=== PATIENT | male | born 1970 | race Caucasian/White ===

== ENCOUNTER → 2017-01-31 | Outpatient (CLI) | payer MEDICAID ==
[~2017-01-31] MED LIST: NONE PER PT
== END ==
LOC: STAR 12:00 → EDSTATUS 13:30
PROVIDERS: ATTEND Orthopaedic Surgery Orthopaedic Surgery of the Spine
DX: Z02.9 Encounter for administrative examinations, unspecified (principal)
CPT/HCPCS: 36415; 71020; 80053; 81003; 85025; 93005

== ENCOUNTER 2017-02-02 11:30 | Inpatient (IN) | payer MEDICAID ==
[2017-01-31 14:40] LABS: ASPARTATE AMINO TRANSFERASE 26 U/L (15-37); BLOOD UREA NITROGEN 10 mg/dL (7-18)
[~2017-02-02] VITALS: Ht 172.7 cm; Wt 98.9 kg
[2017-02-16] MEDS ORDERED: BUPIVACAINE/PF-EPI 0.25% 1:200K ONE (06:25)
[2017-02-16] MEDS ORDERED: THROMBIN 5,000 UNIT VIAL TP ONE ×2 (06:25→08:40)
[2017-02-16] MEDS ORDERED: BACITRACIN OINT 500U/GM, 15 GM ONE ×2 (06:25→08:40)
[2017-02-16] MEDS ORDERED: BUPIVACAINE/PF-EPI 0.5% 1:200K ONE (08:40)
[2017-02-16 08:54] LABS: DAU SCREEN DISCLAIMER
[2017-02-16] MEDS ORDERED: LACTATED RINGERS 1,000 ML IV SCH (10:23)
[2017-02-16 10:24] VITALS: BP 147/81
[2017-02-16] MEDS ORDERED: ASPI-496 PO (10:31)
[2017-02-16] MEDS ORDERED: ONDANSETRON 2MG/ML, 2ML ONE (12:16)
[2017-02-16] MEDS ORDERED: CEFAZOLIN 1,000 MG ONE (12:16)
[2017-02-16] MEDS ORDERED: DEXAMETHASONE 4 MG/ML, 5ML ONE (12:16)
[2017-02-16] MEDS ORDERED: ROCURONIUM 10 MG/ML ONE (12:16)
[2017-02-16] MEDS ORDERED: PROPOFOL 10 MG/ML, 50ML ONE (12:16)
[2017-02-16] MEDS ORDERED: PROPOFOL 10 MG/ML, 20ML ONE (12:16)
[2017-02-16] MEDS ORDERED: SUCCINYLCHOLINE 20 MG/ML, 10ML ONE (12:16)
[2017-02-16] MEDS ORDERED: FENTANYL PF 250 MCG/5ML ONE (12:23)
[2017-02-16] MEDS ORDERED: KETAMINE 10 MG/ML, 20ML ONE (12:37)
[2017-02-16] MEDS ORDERED: PHARMACY MAY ADJ FOR RENAL FX MC PRN (13:00)
[2017-02-16] MEDS ORDERED: MAGNESIUM HYDROXIDE 8%, 30ML UDC PO PRN (13:00)
[2017-02-16] MEDS ORDERED: BISACODYL 10 MG SUPP PR PRN (13:00)
[2017-02-16] MEDS ORDERED: SENNA/DOCUSATE TABLET PO PRN (13:00)
[2017-02-16] MEDS ORDERED: ONDANSETRON 2MG/ML, 2ML IVPush PRN ×2 (13:00→14:00)
[2017-02-16] MEDS ORDERED: DIPHENHYDRAMINE 50 MG/ML, 1ML IVPush PRN (13:00)
[2017-02-16] MEDS ORDERED: METHOCARBAMOL 750 MG TABLET PO PRN (13:00)
[2017-02-16] MEDS ORDERED: morphine SULFATE 10 MG/ML, 1ML IVPush PRN (13:00)
[2017-02-16] MEDS ORDERED: FENTANYL PF 100 MCG/2ML ONE ×2 (13:16→14:41)
[2017-02-16] MEDS ORDERED: hydrALAzine 20 MG/ML, 1ML IV PRN (14:00)
[2017-02-16] MEDS ORDERED: LABETALOL 5MG/ML, 20ML IV PRN (14:00)
[2017-02-16] MEDS ORDERED: MIDAZOLAM 1 MG/ML, 2ML IV PRN (14:00)
[2017-02-16] MEDS ORDERED: ACETAMINOPHEN 325 MG TABLET PO PRN (14:00)
[2017-02-16] MEDS ORDERED: FENTANYL PF 100 MCG/2ML IV PRN (14:00)
[2017-02-16] MEDS ORDERED: OXYcodone 5 MG/5 ML ORAL.SOL UDC PO PRN (14:00)
[2017-02-16] MEDS ORDERED: HALOPERIDOL 5 MG/ML ONE (14:30)
[2017-02-16] MEDS: HALOPERIDOL 5 MG/ML IV PRN ×2 (14:35→14:50)
[2017-02-16] MEDS ORDERED: MIDAZOLAM 1 MG/ML, 2ML ONE (14:41)
[2017-02-16] MEDS ORDERED: HYDROmorphone 2 MG/ML, 1ML ONE (14:41)
[2017-02-16] MEDS: HYDROmorphone 1 MG/ML, 1ML IV PRN ×2 (14:50→14:55)
[2017-02-16] MEDS: D5%-0.9% NACL+KCL 20MEQ 1,000 ML IV SCH (18:30)
[2017-02-16] MEDS: CEFAZOLIN PMX 1GM/50ML 50 ML IVPB SCH (18:31)
[2017-02-16] MEDS ORDERED: HYDROmorphone 1 MG/ML, 1ML IV PRN (19:30)
[2017-02-16 20:03] VITALS: BP 138/89
[2017-02-16] MEDS: OXYcodone/APAP 5/325MG TABLET PO PRN (21:03)
[2017-02-16 23:25] VITALS: BP 113/73
[2017-02-17] MEDS: OXYcodone/APAP 5/325MG TABLET PO PRN ×5 (01:22→22:03)
[2017-02-17] MEDS: CEFAZOLIN PMX 1GM/50ML 50 ML IVPB SCH (02:46)
[2017-02-17 03:47] VITALS: BP 116/73
[2017-02-17] MEDS: D5%-0.9% NACL+KCL 20MEQ 1,000 ML IV SCH ×3 (04:18→23:51)
[2017-02-17 06:42] VITALS: BP 130/80
[2017-02-17 13:20] VITALS: BP 134/76
[2017-02-17 19:52] VITALS: BP 110/80
[2017-02-18 01:28] VITALS: BP 102/71
[2017-02-18] MEDS: OXYcodone/APAP 5/325MG TABLET PO PRN ×4 (03:35→23:29)
[2017-02-18 06:52] VITALS: BP 116/73
[2017-02-18] MEDS: D5%-0.9% NACL+KCL 20MEQ 1,000 ML IV SCH ×2 (10:30→20:30)
[2017-02-18 13:15] VITALS: BP 117/73
[2017-02-18] MEDS ORDERED: OXYC-302 PO (16:43)
[2017-02-18] MEDS ORDERED: CEPH-368 PO (16:43)
[2017-02-18 21:11] VITALS: BP 147/89
[2017-02-19 01:35] VITALS: BP 147/83
[2017-02-19] MEDS: OXYcodone/APAP 5/325MG TABLET PO PRN (03:09)
[2017-02-19] MEDS: D5%-0.9% NACL+KCL 20MEQ 1,000 ML IV SCH (03:47)
[2017-02-19 06:44] VITALS: BP 147/92
== END 2017-02-19 11:45 | disposition home or self-care (01) | DRG 473 ==
LOC: ORIP 02-16 07:01 → EDSTATUS 02-16 09:00 → 4NOR 02-16 16:41
PROVIDERS: ADMIT Orthopaedic Surgery Orthopaedic Surgery of the Spine; ATTEND Orthopaedic Surgery Orthopaedic Surgery of the Spine
PROC: 4A11X4G Monitoring of Peripheral Nervous Electrical Activity, Intraoperative, External Approach (ICD-10-PCS; 2017-02-16)
PROC: 0RG2071 Fusion of 2 or more Cervical Vertebral Joints with Autologous Tissue Substitute, Posterior Approach, Posterior Column, Open Approach (ICD-10-PCS; principal; 2017-02-16 13:30)
DX: M96.0 Pseudarthrosis after fusion or arthrodesis (principal); F17.210 Nicotine dependence, cigarettes, uncomplicated; Z88.6 Allergy status to analgesic agent; Z79.82 Long term (current) use of aspirin; Z79.899 Other long term (current) drug therapy
CPT/HCPCS: 36415; 71020; 72040; 80053; 80307; 81003; 85025; 86850; 86900; 93005; C1713; J0690; J1100; J1170; J2405; J2704; J3010; C1762; J0330; J1630; J2270; J3480